=== PATIENT | female | born 1935 | race Caucasian/White ===

== ENCOUNTER 2016-05-19 12:23 | Emergency (ER) | payer MEDICARE, OTHER ==
[2016-05-19] MEDS ORDERED: NS 1,000 ML IV ONE (12:31)
--- NOTE | 2016-05-19 12:35 | EDPRACDOC ---
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 Mode Of Arrival: Ambulance Home Medications: Home Medications Atorvastatin Calcium [Lipitor] 10 mg PO DAILY 05/19/16 Clopidogrel Bisulfate [Plavix] 75 mg PO DAILY 05/19/16 Gabapentin [Neurontin] 300 mg PO TID 05/19/16 Glimepiride [Amaryl] 4 mg PO BID 05/19/16 Latanoprost [Xalatan] 1 drop OU DAILY 05/19/16 Levothyroxine [Synthroid, Levoxyl] 112 mcg PO DAILY 05/19/16 Meloxicam [Mobic] 7.5 mg PO DAILY 05/19/16 MetFORMIN (Immediate Release) [GLUCOPHAGE Immed Release] 1,000 mg PO BID Nitrofurantoin [Macrobid] 100 mg PO BID #14 cap 05/19/16 Pioglitazone HCl [Actos] 30 mg PO DAILY 05/19/16 Allergies/Adverse Reactions: Allergies Allergy/AdvReac Type Severity Reaction Status Date / Time No Known Drug Allergies Allergy Unknown Verified 05/19/16 13:06 - History of Present Illness Onset: [employer] HPI: PT HAD A NEAR-SYNCOPAL EVENT AT THE STORE. PT SAID SHE'D BEEN RUNNING ERRANDS ALL DAY. SHE DID EAT BREAKFAST, BUT NOT LUNCH. PT SAID THAT SHE FELT HOT AND FELT LIKE SHE WAS GOING TO PASS OUT. EMS SAID PT'S SBP WAS 80 WHEN THEY ARRIVED. THEY GAVE PT IVFS. BS 210. Duration: Minutes Presyncopal phase:: Reports: Premonition Syncopal phase:: Reports: With standing Postsyncopal phase:: Reports: Rapid recovery Prehospital care: Reports: IV, Moniter Associated Signs/Symptoms: Reports: None ED Past Medical History - Patient Medical History Cardiac History: Reports: Hypercholesterolemia Systemic History: Reports: Diabetes, Hypothyroidism Surgical History: Reports: Hysterectomy, Other (BACK SURGERY, THYROIDECTOMY, KNEE REPLACEMENT) - Social Medical History Smoking Status: Heavy tobacco smoker (5 or more cigarettes/day or daily pipe/ cigar) ETOH: None Substance Abuse: None Lives In: Home EDM Review of Systems - Review of Systems ROS Negative Except as Marked: Yes All systems reviewed and were negative except as marked Cardiovascular: Other (NEAR-SYNCOPE) - Physical Exam Constitutional: Alert (Awake), No apparent distress Oriented to: Time, Person, Place Last recorded Vital Signs: Last Vital Signs Temp Pulse 91 05/19/16 12:31 Resp BP 110/56 L 05/19/16 12:31 Pulse Ox Oxygen Pulse Oxygen Saturation O2 Device Oxygen Flow Rate Fraction of Inspired Oxygen ( FIO2) - HEENT Head: Normal ( normocephalic) Eye Exam: Normal (PERRL, EOMI, Sclera white) Oropharynx: Normal (Pharynx:Moist without exudate,Gums-no swelling) ENT EAC: Normal TMJ: Normal Nose: No Symptoms Reported (septum midline) Neck: Normal (FROM, trachea at midline) - Respiratory/Cardiovascular Respiratory: Normal - CTA (BBS clear to auscultation without adventitious sounds ) Cardiovascular: Normal (RRR without murmur, gallop or rub) - GI Auscultation: Normal (NABS) Palpation: Normal (Soft,No rebound or guarding, non distended) Tenderness: Non tender Dejesus's Sign: Negative - Musculoskeletal Back: Normal (Non-Tender) Extremities: Normal (Normal tone, Pulses 2+ No cyanosis or edema, FROM) - Integumentary Skin: Normal, Warm, Dry Lymphatics: Normal (no adenopathy) - Neurologic Memory Impaired: Normal Motor Function: Normal (Normal tone, Pulses 2+ No cyanosis or edema, FROM) Cranial Nerve: Normal (CN II-X11 intact sensation, strength 5/5) Cerebellar: Normal Mood Description: Normal Thought: Coherent Perception: Normal - Re-evaluation Re-evaluation 1 Re-evaluation Time: 13:50 (improved) - Results 05/19/16 12:50 05/19/16 12:50 - EKG EKG #1 EKG Time: 12:37 -: Yes EKG interpreted by me Rate: bpm: 80 [place]: Normal Rhythm: NSR Block: None Hypertrophy: None ST: Normal Decision Time to Discharge: 13:52 - Departure Yes I personally saw and evaluated the patient. Disposition: Home Condition: Fair Final Diagnosis: UTI (urinary tract infection), hypotension resolved Instructions: Urinary Tract Infection in Women (ED), Dysuria Education/Counseling Given To: Patient Education/Counseling Given Regarding: Diagnosis, Treatment Referrals: Ilda Lloyd MD [Primary Care Provider] - One Week Prescriptions: New Nitrofurantoin [Macrobid] 100 mg PO BID #14 cap No Action Pioglitazone HCl [Actos] 30 mg PO DAILY MetFORMIN (Immediate Release) [GLUCOPHAGE Immed Release] 1,000 mg PO BID Levothyroxine [Synthroid, Levoxyl] 112 mcg PO DAILY Latanoprost [Xalatan] 1 drop OU DAILY Gabapentin [Neurontin] 300 mg PO TID Clopidogrel Bisulfate [Plavix] 75 mg PO DAILY Atorvastatin Calcium [Lipitor] 10 mg PO DAILY Glimepiride [Amaryl] 4 mg PO BID Meloxicam [Mobic] 7.5 mg PO DAILY
[2016-05-19 13:04] LABS: AUTOMATED BASOPHIL 0.6 % (0-2); AUTOMATED EOSINOPHIL 0.9 % (0-5); AUTOMATED LYMPH 14.3 % (17-44); AUTOMATED MONOCYTE 8.6 % (3-10); AUTOMATED NEUTROPHIL 75.6 % (45-76)
[2016-05-19 13:05] LABS: LEUKOCYTES/URINE 1+ (NEGATIVE); NITRITE/URINE NEG (NEGATIVE); RBC/URINE 0-2 (0-5); URINE OCCULT BLOOD NEG (NEG/TRACE)
[2016-05-19 13:09] VITALS: TEMP 97.8; BMI 21.9
[2016-05-19 13:14] LABS: BLOOD UREA NITROGEN 21 MG/DL (7-17); CALC CORRECTED 8.9 MG/DL (8.4-10.2); CALCIUM 8.6 MG/DL (8.4-10.2); CALCULATED OSMOLALITY 272 MOs/Kg (270-290); CHLORIDE 104 mEq/L (98-107); GLUCOSE 180 mg/dL (70-99); SODIUM LEVEL 137 mEq/L (137-146); TOTAL PROTEIN 6.6 G/DL (6.3-8.2)
[2016-05-19 13:19] LABS: PARTIAL THROMB. TIME 23.1 SEC (22-35); PT-INR 1.2
[2016-05-19 13:29] LABS: FREE T3 2.9 pg/mL (2.77-5.27); FREE T4 1.94 ng/dL (0.78-2.19)
--- NOTE | 2016-05-19 13:38 | DIRPT ---
CLINICAL DATA: Near syncopal episode at store, running errands all day, ate breakfast but not lunch, became hot and felt like she was going to pass out, systolic blood pressure of 80 at EMS arrival, initial encounter EXAM: PORTABLE CHEST 1 VIEW COMPARISON: Portable exam 1254 hours compared to 07/09/2015 FINDINGS: Minimal enlargement of cardiac silhouette. Atherosclerotic calcification aorta. Mediastinal contours and pulmonary vascularity normal. Lungs hyperinflated which could reflect COPD. No definite infiltrate, pleural effusion or pneumothorax. Degenerative changes at the LEFT sternoclavicular joint. Bones demineralized. IMPRESSION: Minimal enlargement of cardiac silhouette. Question COPD changes without acute infiltrate. Electronically Signed By: Modesto Alston M.D. On: 05/19/2016 13:36
[2016-05-19 13:43] LABS: hTSH 0.61 uIU/mL (0.5-4.67)
[2016-05-19] MEDS ORDERED: NITROFURANTOIN 100 MG CAP PO ONE (13:53)
[2016-05-19 14:14] VITALS: BP 126/76; PULSE 82
== END 2016-05-19 14:09 | disposition home or self-care (01) ==
LOC: ED 12:23
DX: N39.0 Urinary tract infection, site not specified (principal); I95.9 Hypotension, unspecified; E78.00 Pure hypercholesterolemia, unspecified; E11.9 Type 2 diabetes mellitus without complications; E03.9 Hypothyroidism, unspecified; F17.200 Nicotine dependence, unspecified, uncomplicated; Z79.899 Other long term (current) drug therapy; Z79.84 Long term (current) use of oral hypoglycemic drugs
CPT/HCPCS: 36415; 71010; 80053; 81001; 84439; 84443; 84481; 84484; 85025; 85610; 85730; 87086; 93005; 96360; 99283; A9270; J3490